=== PATIENT | female | born 1960 | race Caucasian/White ===

== ENCOUNTER → 2021-02-25 | Outpatient (CLI) | payer BC | LOC: M.MRI | PROVIDERS: ATTEND Orthopaedic Surgery | DX: S83.232A Complex tear of medial meniscus, current injury, left knee, initial encounter (principal); M17.12 Unilateral primary osteoarthritis, left knee; M25.462 Effusion, left knee; M71.22 Synovial cyst of popliteal space [Baker], left knee; X58.XXXA Exposure to other specified factors, initial encounter; Y93.89 Activity, other specified; Y92.89 Other specified places as the place of occurrence of the external cause; Y99.8 Other external cause status ==

== ENCOUNTER → 2021-03-03 | Outpatient (CLI) | payer BC ==
[~2021-03-03] MED LIST: DITROPAN XL10 M1 PO; FLOMAX0.4 MG PO; HYDROCHLOROTH12.5 M1 PO; NORVASC5 MG PO; OMEPRAZOLE40 MG PO; PRAVASTATIN SOD80 MG PO; TOPROL XL100 MG PO
[2021-03-03 10:18] LABS: ABSOLUTE EOSINOPHILS 0.1 thou/uL (0.0-0.7); ABSOLUTE LYMPHOCYTES 1.4 thou/uL (0.8-5.3); ABSOLUTE MONOCYTES 0.7 thou/uL (0.0-1.2); BASOPHILS 0.6 %; EOSINOPHILS 1.6 %; HEMOGLOBIN 12.9 gm/dL (12.0-15.0); MCH 27.1 pg (26.0-34.0); MCHC 33.2 g/dL (28.0-37.0); MCV 81.7 fL (80.0-100.0); MONOCYTES 9.1 %; MPV 7.3 fl. (7.2-11.1); NUCLEATED RBCS 0 /100WBC; PLATELET COUNT* 197 thou/uL (150-400); POLYS 69.7 %; RBC 4.78 mil/uL (4.20-5.00); RDW-CV 14.4 % (10.5-14.5); WBC 7.2 thou/uL (4.0-11.0)
[2021-03-03 10:29] LABS: PROTIME 10.2 Seconds (9.20-11.50)
[2021-03-03 10:43] LABS: URINE BILIRUBIN NEGATIVE (Negative); URINE BLOOD 1+ (Negative); URINE CLARITY CLEAR; URINE COLOR YELLOW; URINE GLUCOSE-RANDOM NEGATIVE (Negative); URINE KETONES NEGATIVE (Negative); URINE LEUKOCYTES-REFLEX NEGATIVE (Negative); URINE NITRITE-REFLEX NEGATIVE (Negative); URINE PROTEIN NEGATIVE (Negative); URINE UROBILINOGEN 0.2 E.U./dl (0.2-1.0)
[2021-03-03 10:53] LABS: URINE WBC-REFLEX None Seen /HPF (0-5)
[2021-03-03 10:54] LABS: BACTERIA-REFLEX None Seen /HPF (None Seen); CASTS None Seen /LPF (None Seen); CRYSTALS None Seen /LPF (None Seen); SQUAMOUS NONE SEEN /LPF (0-3); URINE RBC 0-2 Rare /HPF (0-2)
[2021-03-03 11:04] LABS: ALBUMIN 3.8 g/dL (3.4-5.0); CALCIUM 8.5 mg/dL (8.5-10.1); POTASSIUM 4.2 mmol/L (3.5-5.1); TOTAL BILIRUBIN 0.4 mg/dL (<0.1-1.0); TOTAL PROTEIN 6.8 g/dL (6.4-8.2)
== END ==
LOC: M.LAB 05:29
PROVIDERS: ATTEND Orthopaedic Surgery
DX: Z01.818 Encounter for other preprocedural examination (principal); Z01.812 Encounter for preprocedural laboratory examination; M17.12 Unilateral primary osteoarthritis, left knee

== ENCOUNTER 2021-03-11 07:10 | Observation (INO) | payer BC ==
[~2021-03-11] VITALS: Ht 165.1 cm; Wt 101.6 kg
[2021-03-11 08:20] VITALS: BP 148/73
[2021-03-12] VITALS (8 sets, daily range): BP systolic 107–152; BP diastolic 46–75
[2021-03-12 03:59] LABS: HEMATOCRIT 34.4 % (37.0-47.0); HEMOGLOBIN 11.1 gm/dL (12.0-15.0)
[2021-03-12 04:14] LABS: ALBUMIN 3.2 g/dL (3.4-5.0); POTASSIUM 4.2 mmol/L (3.5-5.1); TOTAL BILIRUBIN 0.3 mg/dL (<0.1-1.0); TOTAL PROTEIN 6.4 g/dL (6.4-8.2)
--- NOTE | 2021-03-12 04:57 | NUR ---
PATIENT SLEPT WELL DURING THIS SHIFT. PT WITH FLUIDS/ANTIBIOTICS INFUSING PER DR ORDER. PT USES CALL LIGHT APPROPRIATELY FOR ASSISTANCE TO BSC. PT WITH HEMOVAC DRAIN IN LT KNEE. POLAR PACK IN PLACE. PT WEARING FOOT PUMPS. PT ON O2 @ 2 LITERS WITH CONTINUOUS SAT MONITOR. PT BROUGHT CPAP FROM HOME BUT FORGOT ONE PIECE. RT PLACED PT ON 4LITERS DURING THE NIGHT INSTEAD OF CPAP. PT REQUESTS PAIN MEDICATION, RECEIVES OXY IR 10MG AND SAYS PAIN IS RELIEVED. PT DENIES NEEDS AT THIS TIME. FREQUENTLY USED ITEMS AND CALL LIGHT WITHIN REACH. SIDERAILS UPX2 AND BED ALARM ON. WILL CONTINUE TO MONITOR.
--- NOTE | 2021-03-12 07:02 | NUR ---
NO OT REQUIRED AT THIS TIME, WILL DEFER TO PT.
[2021-03-12] MEDS ORDERED: HYDROCODON-ACE1 EAC7 PO (09:08)
[2021-03-12] MEDS ORDERED: XARELTO10 MG PO (09:08)
--- NOTE | 2021-03-12 10:13 | NUR ---
CM ASSESSMENT ASSESSMENT COMPLETED WITH PT. PT ALERT AND ORIENTED. PT REPORTED SHE IS INDEPENDENT WITH ADLS AND HAS NO HX OF SKILLED, REAHB, OR HH SERVICES. PRIOR TO COMING TO [facility] PT USED A CPAP. PT DID NOT USE ANY DME FOR AMBULATION PRIOR TO HER SURGERY, BUT NOW HAS A WALKER. PT TO BE DC'D HOME WITH HOME HEALTH TODAY, 03/12/21. PT REPORTS SHE LIVES HOME ALONE IN HOME WITH TWO STEPS TO ENTER AND 13 STEPS TO THE BEDROOM. PT REPORTS SHE WILL NOT BE USING THE BEDROOM FOR SOME TIME AND THAT HER MOTHER WILL BE STAYING WITH HER TO PROVIDE SUPPORT UNTIL 03/19/21. PT REPORTED HER CHILDREN WILL THEN BE IN TOWN AND STAYING WITH HER FROM 03/19/21 - 03/22/21. PT'S MOTHER WILL TRANSPORT PT HOME FROM [facility] UPON DC. PER PT CHOICE, PT REFERRED FOR HH WITH [facility] ([phone]) - ACCEPTANCE PENDING.
--- NOTE | 2021-03-12 14:42 | NUR ---
HEMOVAC REMOVED AT THIS TIME PER PROTOCOL. GAUZE AND TAPE PLACED TO THE AREA. PATIENT TOLERATED WITHOUT DIFFICULTIES.
--- NOTE | 2021-03-12 16:39 | NUR ---
AM ASSESSMENT AND VITAL SIGNS COMPLETED DOCUMENTED. PT WORKED WITH PT AND OT TODAY AND THEY RECOMMENDED SHE STAY ANOTHER NIGHT. PT NEEDS FURTHER THERAPY FOR SAFETY. PRN PAIN MEDICATIONS GIVEN WITH DECREASE IN LEVEL OF PAIN. POLAR PACK AND CPM USED ORDERED. HEMOVAC DRAIN DC'D. FALL PRECAUTIONS AND HOURLY ROUNDING CONTINUE.
[2021-03-13 04:04] LABS: HEMATOCRIT 29.9 % (37.0-47.0)
[2021-03-13 08:00] VITALS: BP 125/80
--- NOTE | 2021-03-13 09:56 | OP ---
[address] [address] OPERATIVE REPORT Name: CHAMP DARNELL Room: [address] Gail#: [id number] Admission: 03/11/21 Attend Phys: Carmen Starr Discharge: Date of : 64 Report #: [id number] THIS REPORT FOR: cc: Chapito Ac Adam L.MD Greiner, Robert F. II DO ~ DATE OF SURGERY: 03/11/2021 PREOPERATIVE DIAGNOSIS: Left knee osteoarthritis. POSTOPERATIVE DIAGNOSIS: Left knee osteoarthritis. PROCEDURE: Left total knee arthroplasty. SURGEON: John Haas II, DO. METAL SHEET ROLLER OPERATOR: GROVER Bello. ANESTHESIA: Per operative record. ESTIMATED BLOOD LOSS: 50 mL. ANTIBIOTICS: Per operative record. DRAINS: Medium Hemovac. COMPLICATIONS: None. CONDITION: The patient stable to recovery room. DESCRIPTION OF PROCEDURE: The patient was taken to the operative suite, placed supine on the operating table and administered general anesthesia. A well-padded tourniquet applied to the affected upper thigh, which was inflated to 300 mmHg after gravity exsanguination. The operative knee was sterilely prepped and draped. Surgery began by midline incision that was carried down to subcutaneous tissues. A medial parapatellar arthrotomy was performed, carried down to bone. Patella was then everted and excess soft tissues were removed from the femur. Femoral cutting block was then applied and checked with a drop rotational alignment, pinned in appropriate position and appropriate cuts were made. A 4-in-1 cutting block was then applied, checked for rotational alignment, pinned in appropriate position and appropriate cuts were made. The tibia was then exposed. Excess meniscus was removed. Retractor was placed on collateral ligaments. Tibial cutting block was applied, pinned in appropriate position, checked with drop rotational alignment and slope and appropriate cut was made. The tibial bone was removed. The tibial baseplate was then applied, checked for rotational alignment with the drop tabitha [place] [address] OPERATIVE REPORT Name: CHAMP DARNELL Room: [address] M.R.#: [id number] Admission: 03/11/21 Attend Phys: Carmen Starr Discharge: Date of : 64 Report #: [id number] position. The femur was then applied and box cut was reamed. This was then trialed with appropriate spacer, which showed excellent fit and fill and excellent stability to all range of motion. The patella was reamed in appropriate fashion, sized to appropriate size. Three peg holes were drilled and it was then trialed and showed excellent flexion, extension, excellent tracking patella within the groove. These trials were removed. The tibia was punched in appropriate fashion. Bone ends were cleansed with Pulsavac irrigation and cement was mixed, applied to final implants. These were malleted in position and held the knee extension and compressed to allow cement to cure. After it cured, excess was removed with [place] and osteotome. Wound was then copiously irrigated and the final spacer was malleted in position. The tourniquet was deflated. Hemostasis was maintained with electrocautery. Pain cocktail were injected. Capsule was closed with #2 FiberWire and #1 Vicryl in [id number] fashion. Skin was closed with 2-0 Vicryl and a running 3-0 Monocryl and Dermabond sterile dressing applied. Kenneth wrap and PolarCare applied. The patient transported to recovery in stable condition. Counts were correct throughout the procedure. <ELECTRONICALLY SIGNED> By: John Haas II, DO 03/13/21 [id number] Haas II, DO /nt
[2021-03-13 14:05] VITALS: BP 136/75
--- NOTE | 2021-03-13 15:56 | NUR ---
PT DISCHARGED HOME WITH ALL BELONINGS ACCOMPANIED BY HER MOM. PT UPSET THAT SHE CAN NOT GO HOME DUE TO NOT BEING ABLE TO GET IN THE CAR OR HOW IS SHE GETTING HER CPM ON 3TIMES A DAY. PT HAS HOME HEALTH COMING TO HER HOME THREE TIMES A WEEK MAYBE THEY KNOW OF A WAY TO HELP HER WITH THE CPM. EXPLAINED HOW TO DO THE POLAR MANOHAR AND TO KEEP IT ON. PT DISCHARGED HOME WITH ALL BELONGINGS.
--- NOTE | 2021-03-13 18:54 | NUR ---
CM FOLLOWUP PT MED CLEAR. PT DC HOME WITH HH SERVICES VIA [facility] [phone].
== END 2021-03-13 15:45 | disposition home or self-care (01) ==
LOC: M.ORTHSURG → M.TBA 07:10 → M.ORTHSURG 07:41 → M.TBA 10:45 → M.ORTHSURG 11:19 → M.3W 16:22 → M.ORTHSURG 17:40 → M.3W 03-13 15:45
PROVIDERS: Internal Medicine; Orthopaedic Surgery; ADMIT Internal Medicine; ATTEND Internal Medicine
DX: M17.12 Unilateral primary osteoarthritis, left knee (principal); Z20.822 Contact with and (suspected) exposure to COVID-19; I10 Essential (primary) hypertension; E78.5 Hyperlipidemia, unspecified; Z79.899 Other long term (current) drug therapy